=== PATIENT | male | born 1950 | race Caucasian/White ===

== ENCOUNTER 2022-11-04 21:38 | Emergency (ER) | payer MEDICARE ==
[2022-11-04 22:08] LABS: BASOPHILS PERCENT AUTO 0.6 % (0.0-1.5); EOSINOPHILS ABSOLUTE AUTO 0.2 K/uL (0.0-0.7); EOSINOPHILS PERCENT AUTO 2.7 % (0.0-7.0); HEMATOCRIT 46.7 % (38.0-50.0); LYMPHOCYTES ABSOLUTE AUTO 1.3 K/uL (0.6-2.4); MEAN CORPUSCULAR HEMOGLOBIN 29.9 pg (27.0-32.0); MEAN CORPUSCULAR HGB CONC 32.1 g/dL (31.0-37.0); MONOCYTES ABSOLUTE AUTO 0.9 K/uL (0.0-0.8); MONOCYTES PERCENT AUTO 12.2 % (0.0-15.0); NEUTROPHILS ABSOLUTE AUTO 4.7 K/uL (1.4-5.7); NEUTROPHILS PERCENT AUTO 66.5 % (48.0-80.0); NRBC ABSOLUTE 0 K/uL; PLATELET COUNT,PLT 200 K/uL (150-400); RED BLOOD CELL COUNT 5.02 M/uL (4.50-5.90); WHITE BLOOD CELL COUNT,WBC 7.12 K/uL (4.0-11.0)
[2022-11-04 22:32] LABS: ALBUMIN 3.6 g/dL (3.4-5.0); BILIRUBIN TOTAL 0.3 mg/dL (0.2-1.0); CALCIUM 9.9 mg/dL (8.5-10.1); CARBON DIOXIDE,CO2 34.7 mmol/L (21.0-32.0); CREATININE 1.3 mg/dL (0.8-1.3); EST CRCL DRUG DOSING (CG) 53.81 mL/min; POTASSIUM,K 4.9 mmol/L (3.5-5.1); PROTEIN TOTAL,TP 7.2 g/dL (6.4-8.2)
[2022-11-04] MEDS ORDERED: Aspirin 81 MG Tab.Chew PO ONE (22:33)
== END 2022-11-04 23:30 | disposition home or self-care (01) ==
LOC: MW.ED 21:38
DX: R07.89 Other chest pain (principal); I10 Essential (primary) hypertension; M10.9 Gout, unspecified; Z79.899 Other long term (current) drug therapy; Z79.84 Long term (current) use of oral hypoglycemic drugs
CPT/HCPCS: 36415; 71045; 80053; 84484; 85025; 93005; 99285; A9270

== ENCOUNTER 2024-11-23 04:48 | Emergency (ER) | payer MEDICARE ==
[2024-11-23] MEDS ORDERED: Sodium Chloride 0.9% 2.5 ML Syringe FLUSH PRN (04:57)
[2024-11-23] MEDS ORDERED: Sodium Chloride 0.9% 10 ML Syringe FLUSH PRN (04:57)
[2024-11-23] MEDS: Lactated Ringers 1,000 ML IV SCH ×2 (05:00→07:23)
[2024-11-23] MEDS: Lactated Ringers 1,000 ML IV ONE (05:02)
[2024-11-23 05:07] LABS: MEAN PLATELET VOLUME 10.4 fL (9.4-12.4); NRBC ABSOLUTE 0.00 K/uL (0.00-0.02); NRBC PERCENT 0.0 /100WBC (0.0-0.2); PLATELET COUNT,PLT 141 K/uL (150-400); RED BLOOD CELL COUNT 4.89 M/uL (4.52-5.90); WHITE BLOOD CELL COUNT,WBC 1.80 K/uL (3.9-11.3)
[2024-11-23 05:21] LABS: BASE EXCESS VENOUS 0.8 (-2.0-3.0); BICARBONATE,VENOUS 24.0 mEq/L (22-29); PCO2 VENOUS 35.0 mmHG (41-51); PH,VENOUS 7.45 (7.32-7.43); PO2 VENOUS 46.0 mmHG (35-45)
[2024-11-23 05:28] LABS: A/G RATIO 1.2 (0.9-1.6); ALANINE AMINOTRANSFERASE,ALT 45 IU/L (14-63); ASPARTATE AMNIOTRANSFERASE,AST 56 IU/L (15-37); BILIRUBIN TOTAL 0.8 mg/dL (0.2-1.0); BLOOD UREA NITROGEN,BUN 18 mg/dL (7.0-18.0); CARBON DIOXIDE,CO2 26.6 mmol/L (21.0-32.0); CHLORIDE,CL 98 mmol/L (98-107); CREATININE 1.5 mg/dL (0.8-1.3); ESTIMATED GFR 49 mL/min (>60); GLUCOSE RANDOM 155 mg/dL (74-106); POTASSIUM,K 4.5 mmol/L (3.5-5.1); PROTEIN TOTAL,TP 6.5 g/dL (6.4-8.2); SODIUM,NA 135 mmol/L (136-148)
[2024-11-23 05:36] LABS: LACTIC ACID 3.4 mmol/L (0.4-2.0)
[2024-11-23 06:03] LABS: EOSINOPHILS ABSOLUTE MAN 0.02 K/uL (0.00-0.45); EOSINOPHILS PERCENT MAN 1 % (0-6); LYMPHOCYTES ABSOLUTE MAN 0.16 K/uL (1.00-4.80); LYMPHOCYTES PERCENT MAN 9 % (24-44); MONOCYTES ABSOLUTE MAN 0.02 K/uL (0.00-0.80); MONOCYTES PERCENT MAN 1 % (0-8)
[2024-11-23 06:05] LABS: BAND ABSOLUTE MAN 0.32; BAND PERCENT MAN 18 %; SEG NEUTROPHILS ABSOLUTE MAN 1.28 K/uL (1.80-7.70); SEG NEUTROPHILS PERCENT MAN 71 % (41-71)
[2024-11-23] MEDS: Norepinephrine Bit/D5W Premix 250 ML IV SCH (06:13)
[2024-11-23] MEDS ORDERED: Iopamidol 755 MG/ML 500 ML Multipack Bottle IVPUSH STA (06:23)
[2024-11-23 06:30] LABS: APPEARANCE,URINE CLOUDY; GLUCOSE,URINE NEGATIVE (NEGATIVE); OCCULT BLOOD,URINE LARGE (NEGATIVE)
[2024-11-23 06:41] LABS: EPITHELIAL CELLS,URINE FEW (NONE-FEW)
[2024-11-23] MEDS: VANCOmycin 2 GM/400 ML 2 GM in Premix Bag 1 BAG IV ONE (07:19)
[2024-11-23] MEDS: DOBUTamine/Dextrose 5%-Water 500 MG/250 ML BAG IV SCH (08:33)
[2024-11-23 08:42] LABS: INR 1.01 (0.86-1.11); PTT,PARTIAL THROMBOPLSTIN TIME 21.9 SEC (23.9-30.7)
[2024-11-23] MEDS: Hydrocortisone Sodium Succinate 100 MG/2 ML SDV IVPUSH ONE (09:09)
[2024-11-23] MEDS: Heparin Sodium 5,000 Units/ML Vial IVPUSH ONE (09:10)
[2024-11-23] MEDS: Heparin Sodium/0.45% NaCl 25,000 UNITS/250 ML BAG IV SCH (09:10)
== END 2024-11-23 09:48 ==
LOC: MW.ED 04:48
DX: A41.9 Sepsis, unspecified organism (principal); I10 Essential (primary) hypertension; E11.9 Type 2 diabetes mellitus without complications; Z79.899 Other long term (current) drug therapy
CPT/HCPCS: 36415; 51702; 70450; 71045; 71260; 74177; 76705; 80053; 81001; 82803; 83605; 83690; 83880; 84484; 85025; 85610; 85730; 87040; 87077; 87154; 87184; 87186; 87428; 93005; 96365; 96366; 96367; 96368; 96375; 99285; A9270; J1250; J1644; J1720; J2543; J2598; J2765; J3375; J7030; J7120